=== PATIENT | male | born 1950 | race Two or more races ===

== ENCOUNTER 2025-03-09 06:40 | Day surgery (SDC) | payer MEDICARE, SELFPAY ==
[2025-03-08 09:39] VITALS: BMI 23.7
[2025-03-09] VITALS (9 sets, daily range): BP systolic 112–150; BP diastolic 62–83; PULSE 60–71; RESP 14–18; TEMP 36.3–36.7; O2SAT 97–99; BMI 25.5
[2025-03-09] MEDS: SODIUM CHLORIDE 0.9% 500 ML 500 ML 100 ML IV (07:23)
[2025-03-09] MEDS: fentaNYL CIT INJ 50 mCg/ML AMP 2ML (ASD USE ONLY) IVP (07:28)
[2025-03-09] MEDS: DiphenhydrAMINE INJ 50 MG/ML VIAL 25 MG IVP (07:28)
[2025-03-09] MEDS: MIDAZOLAM INJ 1 MG/ML VIAL 2 ML (ASD USE ONLY) 2 MG IVP (07:32)
== END 2025-03-09 08:45 | disposition home or self-care (01) ==
PROVIDERS: PCP Family Medicine; Referring Provider Surgery; Visit Provider Surgery
PROC: 0DBE8ZX Excision of Large Intestine, Via Natural or Artificial Opening Endoscopic, Diagnostic (ICD-10-PCS; CPT 45380; principal; 2025-03-09 07:30)
DX: Z12.11 Encounter for screening for malignant neoplasm of colon (principal); K62.89 Other specified diseases of anus and rectum; D12.4 Benign neoplasm of descending colon; K64.1 Second degree hemorrhoids; K57.30 Diverticulosis of large intestine without perforation or abscess without bleeding
CPT/HCPCS: 45385; 45380; J1200; J2250; J3010; J7999